=== PATIENT | female | born 1965 | race Caucasian/White ===

== ENCOUNTER 2023-07-31 18:51 | Emergency (ER) | payer BC, SELFPAY ==
--- NOTE | ~2023-07-31 | US_ITS ---
EXAMINATION: US venous doppler LE RT DATE: 07/31/2023 22:24 INDICATION: Right lower limb pain, swelling and warmth post recent blunt trauma. TECHNIQUE: Grayscale ultrasound images without and with compression and Doppler ultrasound images of the right lower extremity veins were obtained. COMPARISON: None. FINDINGS: The visualized portions of right common femoral vein, profunda (deep) femoral vein, femoral vein, pop liteal vein, peroneal trunk, posterior tibial veins, peroneal veins, gastrocnemius vein and greater s aphenous vein outflow are patent. IMPRESSION: 1. No deep venous thrombosis in the right lower limb. Reviewed, dictated and finalized at location A. 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
--- NOTE | ~2023-07-31 | XR_ITS ---
EXAMINATION: XR tibia fibula RT 2V DATE: 07/31/2023 22:52 INDICATION: Right lower leg pain post fall TECHNIQUE: PA and lateral views of the right tibia and fibula were obtained. COMPARISON: None. FINDINGS: Alignment is normal. No fracture. Joint spaces are normal. Soft tissue swelling with subcutaneous tisha ma along the lateral aspect of the mid to distal right calf. No right knee or ankle joint effusion. IMPRESSION: 1. No osseous abnormality Reviewed, dictated and finalized at location A. [employer] IMPRESSION: 1. No osseous abnormality
[2023-07-31 19:27] VITALS: BP 135/87; PULSE 96; RESP 15; TEMP 36.6; O2SAT 100
--- NOTE | 2023-07-31 22:41 | ED.GENADULT ---
HPI - General Adult General Chief complaint: Extremity Injury, Lower Stated complaint: R thigh swollen and warm to touch Time Seen by Provider: 07/31/23 21:54 Source: patient Mode of arrival: ambulatory Limitations: no limitations History of Present Illness HPI narrative: This is a 58-year-old female who presents to the ED with chief complaint of right lower leg pain after a fall that occurred a week ago. She reports she has swelling in the right calf area and is concerned for possible blood. Denies any discoloration to the skin. Reports some bruising to the right buttock that is improving. She has been ambulating. Denies any new injuries or any further sites of pain. Denies chest pain, shortness of breath, cough, numbness or weakness. Related Data Allergies Allergy/AdvReac Type Severity Reaction Status Date / Time Sulfa (Sulfonamide AdvReac Gastrointestinal Verified 07/31/23 21:57 Antibiotics) Upset Review of Systems Review of Systems: All systems as dictated in HPI Exam Narrative: GENERAL: Well-appearing, well-nourished, and in no acute distress. HEAD: Normocephalic, atraumatic. EYES: PERRLA and EOMI. ENT: Nares clear, no rhinorrhea or epistaxis. Mucous membranes moist. Oropharynx without tonsillar hypertrophy exudate or other lesions. NECK: Supple. No adenopathy or masses. CHEST: No respiratory distress. Clear to auscultation. No wheezes rales or rhonchi HEART: Regular rate and rhythm. No murmur heard. Normal peripheral pulses. ABDOMEN: Soft, nontender, nondistended, normal active bowel sounds. MSK: Normal range of motion. No edema bilaterally. Mild tenderness to the right calf. Right lower extremity exam otherwise completely benign SKIN: Warm, dry, no rash. NEURO: Alert and oriented x3. No focal deficits. PSYCH: Normal mood and affect. Course Vital Signs Vital signs: Vital Signs Temperature 97.9 F 07/31/23 19:27 Pulse Rate 96 07/31/23 19:27 Respiratory Rate 15 07/31/23 19:27 Blood Pressure 135/87 07/31/23 19:27 Pulse Oximetry 100 07/31/23 19:27 Oxygen Delivery Room Air 07/31/23 19:27 Temperature 97.9 F 07/31/23 19:27 Pulse Rate 96 07/31/23 19:27 Respiratory Rate 15 07/31/23 19:27 Blood Pressure 135/87 07/31/23 19:27 Pulse Oximetry 100 07/31/23 19:27 Oxygen Delivery Room Air 07/31/23 19:27 Medical Decision Making MDM Narrative Medical decision making narrative: This is a 58-year-old female who presents to the ED with chief complaint of right calf pain following a fall that occurred 1 week ago. Vitals are normal. Exam is benign. No edema. Mild tenderness to the right calf. X-ray tib-fib is negative for any fractures. Ultrasound is negative for DVT. Symptoms consistent with contusion. Pt will be discharged in stable condition. Return precautions given and supportive measures discussed. Pt is understanding and agreeable with plan for discharge and follow-up with PCP. Vital Signs Vital Signs: Vital Signs Temperature 97.9 F 07/31/23 19:27 Pulse Rate 96 07/31/23 19:27 Respiratory Rate 15 07/31/23 19:27 Blood Pressure 135/87 07/31/23 19:27 Pulse Oximetry 100 07/31/23 19:27 Oxygen Delivery Room Air 07/31/23 19:27 Temperature 97.9 F 07/31/23 19:27 Pulse Rate 96 07/31/23 19:27 Respiratory Rate 15 07/31/23 19:27 Blood Pressure 135/87 07/31/23 19:27 Pulse Oximetry 100 07/31/23 19:27 Oxygen Delivery Room Air 07/31/23 19:27 Discharge Plan Discharge Clinical Impression: Calf pain Patient Disposition: Home, Self-Care Condition: Stable Instructions: Antibiotic Form Additional Instructions: Your exam and imaging today are reassuring. No evidence of any broken bone or blood clot. Take Tylenol regularly for pain control. Follow-up with your regular doctor. If you have any new or worsening symptoms please return to the ER for further evaluation. Follow-up/Referrals: UNKNOWN
== END 2023-07-31 23:27 | disposition home or self-care (01) ==
PROVIDERS: Emergency Provider Physician Assistant
DX: M79.661 Pain in right lower leg (principal)
CPT/HCPCS: 73590; 93971; 99284